=== PATIENT | male | born 1995 | race Caucasian/White ===

== ENCOUNTER 2017-01-05 16:54 | Emergency (ER) | payer BC, OTHER ==
[2017-01-05 18:16] VITALS: BP 140/72
--- NOTE | 2017-01-05 19:02 | UC ---
Abdominal Pain Male HPI - HPI Summary HPI Summary: Pt presents for a note for return to work. Pt has a history of crohn's disease and reports that he had a "flair" yesterday. - History of Current Complaint Chief Complaint: UCGI Stated Complaint: VOMITING Time Seen by Provider: 01/05/17 18:57 Hx Obtained From: Patient Onset/Duration: Sudden Onset, Lasting Days - 1 Severity Initially: Mild Severity Currently: Mild Location: Diffuse Radiates: No Character: Colicy, Cramping, Dull Aggravating Factor(s): Food Alleviating Factor(s): Rest, Other - NPO Associated Signs And Symptoms: Positive: Other - abdominal discomfort - Allergies/Home Medications Allergies/Adverse Reactions: Allergies Allergy/AdvReac Type Severity Reaction Status Date / Time No Known Allergies Allergy Verified 01/05/17 18:16 Home Medications: Home Medications NK [No Home Medications Reported] 01/05/17 [History Confirmed 01/05/17] PMH/Surg Hx/FS Hx/Imm Hx Previously Healthy: Yes GI/ History: Other Other GI/ History: Crohn's disease - Surgical History Surgical History: Yes Surgery Procedure, Year, and Place: tibial surgery. abscess - Family History Known Family History: Positive: Cardiac Disease - Social History Occupation: Employed Full-time Lives: With Family Alcohol Use: Occasionally Substance Use Type: None Smoking Status (MU): Never Smoked Tobacco Have You Smoked in the Last Year: No Review of Systems Constitutional: Negative Skin: Negative Eyes: Negative ENT: Negative Respiratory: Negative Cardiovascular: Negative Gastrointestinal: Abdominal Pain Genitourinary: Negative Motor: Negative Neurovascular: Negative Musculoskeletal: Negative Neurological: Negative Psychological: Negative Is Patient Immunocompromised?: No All Other Systems Reviewed And Are Negative: Yes Physical Exam Triage Information Reviewed: Yes Appearance: Well-Appearing Vital Signs: Initial Vital Signs Temp 98.1 F 01/05/17 18:12 Pulse 88 01/05/17 18:12 Resp 16 01/05/17 18:12 BP 140/72 01/05/17 18:12 Pulse Ox 96 01/05/17 18:12 Vital Signs Reviewed: Yes Eye Exam: Normal ENT Exam: Normal Dental Exam: Normal Neck exam: Normal Respiratory Exam: Normal Cardiovascular Exam: Normal Abdominal Exam: Normal Musculoskeletal Exam: Normal Neurological Exam: Normal Psychological Exam: Normal Skin Exam: Normal Abd Pain Male Course/Dx - Differential Dx/Clinical Impression Differential Diagnosis/HQI/PQRI: Other - abdominal pain Provider Diagnoses: abdominal pain. return to work note Discharge - Discharge Plan Condition: Stable Disposition: HOME Patient Education Materials: Acute Abdominal Pain (ED) Forms: *Work Release Referrals: [facility] [Primary Care Provider] - If Needed
== END 2017-01-05 19:07 | disposition home or self-care (01) ==
LOC: UCCORT 16:54
DX: R10.9 Unspecified abdominal pain (principal); K50.90 Crohn's disease, unspecified, without complications
CPT/HCPCS: 99211; G0463